=== PATIENT | male | born 1975 | race African-American/Black ===

== ENCOUNTER 2023-07-11 07:07 | Emergency (ER) | payer MEDICAID ==
[~2023-07-11] VITALS: Ht 185.4 cm; Wt 86.2 kg
[2023-07-11] MEDS ORDERED: LIDOCAINE 5% (PATCH) 1 EA PATCH TP STA (07:28)
[2023-07-11] MEDS ORDERED: KETOROLAC TROMETHAMINE 15 MG/ML VIAL IM ONE (07:30)
[2023-07-11] MEDS ORDERED: LIDOCAINE 5% (PATCH) 1 EA PATCH TP ONE (07:38)
[2023-07-11] MEDS ORDERED: KETOROLAC TROMETHAMINE 15 MG/ML VIAL ONE (07:38)
[2023-07-11] MEDS ORDERED: LIDO30AD10 TP (07:57)
[2023-07-11] MEDS ORDERED: CYCL5TAB PO (07:57)
[2023-07-11] MEDS ORDERED: IBUP-1955 PO (07:57)
[2023-07-11 09:35] VITALS: BP 133/81; TEMP 98; O2SAT 99
== END 2023-07-11 09:33 | disposition home or self-care (01) ==
LOC: ER 07:07
DX: S39.012A Strain of muscle, fascia and tendon of lower back, initial encounter (principal); M25.552 Pain in left hip; M25.562 Pain in left knee; J45.909 Unspecified asthma, uncomplicated; F17.200 Nicotine dependence, unspecified, uncomplicated; Z60.2 Problems related to living alone; V89.2XXA Person injured in unspecified motor-vehicle accident, traffic, initial encounter; Y93.89 Activity, other specified; Y92.89 Other specified places as the place of occurrence of the external cause; Y99.8 Other external cause status
CPT/HCPCS: 99284; 71045; 96372; 72100; 72170; 73564; J1885